=== PATIENT | female | born 1955 | race Caucasian/White ===

== ENCOUNTER 2020-08-17 07:21 | Observation (INO) ==
--- NOTE | 2020-08-16 13:37 | History & Physical Report ---
Date of Service August 16, 2020 Assessment & Plan (1) Pain of metastatic malignancy: Proceed with intrathecal medication delivery system Admission and Anticipated Discharge Date Admission Date: 08/17/2020 Anticipated date of discharge: 08/18/20 History of Present Illness Primary Care Provider: Elzbieta Riley Barbara Watts 65 female with a history of pancreatic cancer with metastases was experiencing epigastric pain. She has failed multiple treatment modalities to control pain including neurolytic celiac plexus block. She underwent intrathecal hydromorphone trial with excellent efficacy and is now located to undergo implantation intrathecal drug delivery system implantation with hydromorphone infusion. She is being admitted to the ambulatory surgery unit to undergo the procedure on 08/17/2020. Allergies Allergy/AdvReac Type Severity Reaction Status Date / Time latex Allergy rash, welts Verified 08/16/20 11:12 Penicillins Allergy Anaphylaxis Verified 08/16/20 11:12 Home Medications Medication Instructions Recorded Confirmed Type ascorbic acid (vitamin C) 1,000 mg 1 gm PO BID tab 06/23/19 08/16/20 History tablet cholecalciferol (vitamin D3) 100 4,000 units PO QPM 06/23/19 08/16/20 History mcg (4,000 unit) capsule escitalopram oxalate 10 mg tablet 10 mg PO QAM 06/23/19 08/16/20 History lanreotide 120 mg/0.5 mL 120 mg SQ .every 28 days ml 06/23/19 08/16/20 History subcutaneous syringe [id number] 2 cap PO .with meals cap 06/23/19 08/16/20 History 36,000-114,000-180,000 unit capsule,delay rel zolpidem 10 mg tablet 10 mg PO HS tab 06/23/19 08/16/20 History cyanocobalamin (vitamin B-12) 1,000 mcg IM MONTHLY 03/30/20 08/16/20 History potassium chloride 20 meq PO QAM 03/30/20 08/16/20 History warfarin 5 mg PO QPM 03/30/20 08/16/20 History Lovenox 50 mg SC BID 04/12/20 08/16/20 History pregabalin [Lyrica] 150 mg PO TID 05/31/20 08/16/20 History sennosides [senna] 17.2 mg PO HS 07/28/20 08/16/20 History Past Med/Surg History Medical History Age related osteoporosis Arthritis HIP Cancer pancreatic cancer w/ mets to liver; dx 2017; surgery + chemo/radiation (last treatment 06/2019) Cancer related pain Cervical spinal stenosis Chronic anticoagulation Depression Fibromyalgia History of DVT (deep vein thrombosis) BLLE 2013 following surgery --> PE -- on coumadin History of pulmonary embolism h/o 2013 following surgery and again in 2018 r/t cancer diagnosis -- on coumadin Vertebral compression fracture Surgical History H/O splenectomy H/O: History of cholecystectomy History of colonoscopy History of esophagogastroduodenoscopy (EGD) History of partial pancreatectomy History of tonsillectomy Family History Father Coronary heart disease Mother Alzheimer disease Other No family history of adverse response to anesthesia Social History Smoking Status: Never smoker Second Hand Exposure: Yes (hx); Hx Alcohol Use: Yes Alcohol type: wine Hx Substance Use: No Preferred Language: Dominican Communication Ability: Effective Visual Impairment: No Limitations Hearing Ability: Normal [place] [employer] Required: No Beliefs That Will Affect Care: None marital status: Engaged Current Living Situation: Significant Other current occupational status: retired Feels Safe at Home: Yes Assistive Devices: None Review of Systems Review of Systems: Unobtainable due to reduced consciousness Constitutional: no fever, no chills, no sweats, no malaise and no weight loss Eyes: no photophobia Respiratory: no cough, no dyspnea, no pain on inspiration and no pain with cough Cardiovascular: no chest pain, no dyspnea and no orthopnea Gastrointestinal: + abdominal pain (midepigastric) Musculoskeletal: as per Subjective / HPI and + back pain (Thoracic spine) Integumentary: no rash and no lesions Neurologic: as per Subjective / HPI; no gait abnormality, no localized weakness, no numbness and no paresthesia Psychiatric: no depression and no anxiety Hematologic / Lymphatic: + easy bruising (Right lower quadrant) Physical Exam Constitutional: WD/WN, vitals as above healthy appearing; no acute distress Eyes: PERRL, conjunctivae normal, anicteric sclerae ENMT: external ear and nose normal, oropharynx normal Neck: trachea midline, no thyromegaly Respiratory: normal respiratory effort, lungs clear to auscultation Cardiovascular: RRR, no murmur, no edema Vessels: normal peripheral pulses, normal carotid upstroke, brachial pulses present, radial pulses present and ulnar pulses present; no JVD and no carotid bruit Extremities: normal capillary refill; no pedal edema Gastrointestinal (Abdomen): normal bowel sounds, soft, nontender, no hepatosp lenomegaly Inspection/Auscultation: normal bowel sounds Percussion/Palpation: + abdomen tender (Epigastric) Skin: no rashes, warm and dry + ecchymosis (Right lower quadrant); no rashes and no ulcers Psychiatric: A+Ox3, euthymic affect Code Status & VTE Plan Code Status Full Code VTE Prophylaxis Plan VTE Prophylaxis will be ordered: Yes Reason for no VTE drug order: Contraindicated (Spinal injection)
--- NOTE | 2020-08-16 13:49 | Anesthesiology Consultation ---
Date of Service August 16, 2020 Assessment & Plan (1) Encounter for pre-operative examination: COVID Status: As of 07/28 nurse assessment, patient denies travel to endemic area, known exposure/sick contacts, or symptoms of COVID19. Preoperative COVID19 testing done in [place] on 08/08/20 -- results NEGATIVE. Per Dr. Haji, no repeat testing needed prior to procedure. Case was scheduled for 08/16, but unfortunately in pre-op was found to have elevated aPTT at 47.8. Decision was made to postpone procedure. "She has a history of hypercoagulable state and is on chronic anticoagulant therapy with Coumadin. She stopped her Coumadin 5 days ago and was placed on 24-hour dosing of subcu Lovenox. She stopped her Lovenox 8 AM yesterday morning anticipation of surgery today...After discussing with her nurse about potential complications, they like to defer surgery until tomorrow. She was discharged today and will be readmitted tomorrow to the short procedure unit to undergo repeat coagulation testing and proposed surgery if her coagulation status is improved." PT/INR/PTT to be checked AM DOS. Chart Review Chart Review: Acceptable Risk for Surgery (pending normalized coag AM DOS) and Patient NOT seen in Pre Admission Testing History Surgery Operation Date: 08/17/20 10:30 Proposed Procedures p Implantation of Intrathecal Morphine Drug Administration System - Anselmojaleesa Haji MD, FIPP Allergies Allergy/AdvReac Type Severity Reaction Status Date / Time latex Allergy rash, welts Verified 08/16/20 11:12 Penicillins Allergy Anaphylaxis Verified 08/16/20 11:12 Medications Home Medications Medication Instructions Recorded Confirmed Last Taken ascorbic acid (vitamin C) 1,000 mg 1 gm PO BID tab 06/23/19 08/16/20 05/30/20 18:00 tablet cholecalciferol (vitamin D3) 100 4,000 units PO QPM 06/23/19 08/16/20 08/15/20 20:00 mcg (4,000 unit) capsule escitalopram oxalate 10 mg tablet 10 mg PO QAM 06/23/19 08/16/20 08/16/20 06:00 lanreotide 120 mg/0.5 mL 120 mg SQ .every 28 days ml 06/23/19 08/16/20 08/06/20 subcutaneous syringe [id number] 2 cap PO .with meals cap 06/23/19 08/16/20 08/15/20 18:00 36,000-114,000-180,000 unit capsule,delay rel zolpidem 10 mg tablet 10 mg PO HS tab 06/23/19 08/16/20 08/15/20 20:00 cyanocobalamin (vitamin B-12) 1,000 mcg IM MONTHLY 03/30/20 08/16/20 08/06/20 potassium chloride 20 meq PO QAM 03/30/20 08/16/20 08/15/20 20:00 warfarin 5 mg PO QPM 03/30/20 08/16/20 08/10/20 Lovenox 50 mg SC BID 04/12/20 08/16/20 08/15/20 08:00 pregabalin [Lyrica] 150 mg PO TID 05/31/20 08/16/20 08/16/20 06:00 sennosides [senna] 17.2 mg PO HS 07/28/20 08/16/20 08/15/20 20:00 Past Medical History Medical History Age related osteoporosis Arthritis HIP Cancer pancreatic cancer w/ mets to liver; dx 2017; surgery + chemo/radiation (last treatment 06/2019) Cancer related pain Cervical spinal stenosis Chronic anticoagulation Depression Fibromyalgia History of DVT (deep vein thrombosis) BLLE 2013 following surgery --> PE -- on coumadin History of pulmonary embolism h/o 2013 following surgery and again in 2018 r/t cancer diagnosis -- on coumadin Vertebral compression fracture Past Family History Family History Father Coronary heart disease Mother Alzheimer disease Other No family history of adverse response to anesthesia Past Surgical History Surgical History H/O splenectomy H/O: History of cholecystectomy History of colonoscopy History of esophagogastroduodenoscopy (EGD) History of partial pancreatectomy History of tonsillectomy Social History Smoking Status: Never smoker Hx Alcohol Use: Yes Alcohol type: wine alcohol intake frequency: holidays/special occasions only Hx Substance Use: No substance use type: does not use Testing Laboratory Results 07/25/20 WBC: 4.2 H/H: 11.8/35.6 PLATELETS: 137 UA: mixed gram + bacteria 08/16/20 PT: 10.9 PTT: 47.8 INR: 1.1 Other Testing Electrocardiogram Date: 07/25/20 Findings: + NSR @ (61bpm) Chest X-Ray Date: 07/26/20 Findings: + NAD
[~2020-08-17 07:21] MED LIST: CLINDAMYCIN 600 MG/54 ML BAG IV SCH; CLINDAMYCIN 900 MG in DEXTROSE 5% 50 ML IV SCH; LACTATED RINGER'S 1,000 ML IV SCH; MUPIROCIN 2% OINT 22 GM TUBE EXT SCH
[2020-08-17 08:20] LABS: Partial Thromboplastin Ratio 1.4; Partial Thromboplastin Time 36.4 Seconds (21.0-31.0); Prothrombin Time 10.5 Seconds (9.0-12.0)
[2020-08-17] MEDS ORDERED: ONDANSETRON INJ 2 MG/ML 2 ML VIAL IV PRN (08:57)
[2020-08-17] MEDS ORDERED: ATROPINE SULFATE 0.1 MG/ML 10ML SYR IV PRN (08:57)
[2020-08-17] MEDS ORDERED: ePHEDrine sulfate 50 MG/ML AMP IV PRN (08:57)
--- NOTE | 2020-08-17 09:26 | History & Physical Bridge Note ---
Date of Service August 17, 2020 History & Physical Bridge Note Barbara Watts is a 65-year-old female who presents today to undergo implantation of intrathecal drug delivery system. She has a history of pancreatic cancer with metastatic disease with epigastric and thoracic spine pain related to her malignancy. She was scheduled to undergo the procedure yesterday, but her PTT was significantly elevated despite her stopping Lovenox for 24 hours. She was therefore postponed and rescheduled today and maintain off her anticoagulant therapy. Coagulation studies acceptable today to proceed. There has been no interim changes in her health or her complaints. Examination today is unchanged from yesterday. Rest of the laboratory studies acceptable. As yesterday, informed consent was obtained including discussing alternative therapies, risks the procedure including injury to the spinal cord, spinal or epidural hematoma, infection, bleeding and reactions to the medications. Patient and her spouse were informed as to the purpose of the procedure was to improve her quality of life by providing better pain relief as well as consequences of not undergoing this procedure. They both stated that he understood and she gave informed consent to proceed.
[2020-08-17] MEDS ORDERED: DEXAMETHASONE SOD INJ 4 MG/ML VIAL ONE (09:41)
[2020-08-17] MEDS ORDERED: NEOSTIGMINE METHYLSULFATE 5 MG/5 ML SYR ONE (09:41)
[2020-08-17] MEDS ORDERED: ONDANSETRON INJ 2 MG/ML 2 ML VIAL ONE (09:41)
[2020-08-17] MEDS ORDERED: LIDOCAINE HCL 2% 2 ML VIAL/AMP(20MG/ML) INFIL ONE (09:41)
[2020-08-17] MEDS ORDERED: GLYCOPYRROLATE 0.2 MG/ML VIAL ONE (09:41)
[2020-08-17] MEDS ORDERED: ROCURONIUM BROMIDE 10 MG/ML 5 ML VIAL IV ONE (09:41)
[2020-08-17] MEDS ORDERED: PROPOFOL IV EMULSION 10 MG/ML 20 ML VIAL IV ONE (09:41)
[2020-08-17] MEDS ORDERED: MIDAZOLAM HCL 1 MG/ML 2ML VIAL ONE (09:42)
[2020-08-17] MEDS ORDERED: HYDROmorphone INJ 2 MG/ML SYR/VIAL ONE (09:42)
[2020-08-17] MEDS ORDERED: SODIUM CHLORIDE 0.9% INJ 10 ML VIAL ONE (09:48)
[2020-08-17] MEDS ORDERED: BUPIVACAINE 0.25% 30 ML VIAL ONE (10:21)
[2020-08-17] MEDS ORDERED: EPINEPHrine INJ 1 MG/ML AMP ONE (10:22)
[2020-08-17] MEDS ORDERED: IOPAMIDOL INJ 61% 15 ML VIAL INSTIL ONE (12:11)
[2020-08-17] MEDS ORDERED: MAGNESIUM SULFATE / D5W 1 GM/100 ML BAG IV ONE (12:15)
--- NOTE | 2020-08-17 13:48 | Operative Report ---
Post Operative Report Pre & Post Diagnosis Operation Date: 08/17/20 10:30 Pre-Op Diagnosis: Pancreatic Cancer with Mets to the Liver, Chronic Mid Epigastric Pain Post-Op Diagnosis: Pancreatic Cancer with Mets to the Liver, Chronic Mid Epigastric Pain I identified the patient and participated in the time-out.: Yes Procedure Operation Date: 08/17/20 10:30 Actual Procedures Implantation of Intrathecal Morphine Drug Administration System- Anselmo Haji MD, LILIYA Surgeon Anselmo Haji MD, LILIYA Bus Greaser ALTAF Perez Estimated Blood Loss 25 Findings Consistent with Post-Op Diagnosis Specimens None Drains None Anesthesia Type General Complications none Disposition Accompanied Patient To Recovery: No Disposition: Recovery Room Description of Procedure Intrathecal pump insertion, Catheter access port study, and Postprocedure Reprogramming and Analysis PREOPERATIVE DIAGNOSIS: Epigastric pain secondary to metastatic pancreatic cancer. POSTOPERATIVE DIAGNOSIS: Same. COMPLICATIONS: None. SURGEON: Dr. Haji. DIRECTOR OF PLACEMENT: ALTAF Perez. ANESTHESIA: General/ETT. Prior to starting, the Patients diagnosis and the procedure were reviewed with the patient in detail. Possible risks and complications including infection, bleeding, damage to surrounding structures, injury to spinal cord and nerves, postural puncture headache and increased pain were discussed. Alternative therapies were also reviewed. Also, the need for routine refill of the pump on an ongoing basis until pump is explanted was discussed with the patient. Tommie doyle questions were answered and they agreed to proceed. Informed consent was obtained. Allergies and medication list was reviewed. The patient was brought to the operating room and placed in supine position. Biplanar fluoroscopy and Isovue-M 300 contrast was utilized to assist in placement of the intrathecal needle and to evaluate the catheter position. 900 mg of clindamycin was given for antibiotic prophylaxis. General anesthesia was induced uneventfully and patient was repositioned in left lateral decubitus position. On examination, no signs of skin breakdown or infection were noted at the operative sites. Entire thoracic lumbar area and left lower quadrant of the abdomen were cleansed with DuraPrep followed by Betadine. Sterile drapes were applied. Immediately prior to starting the procedure, a ``time out was conducted with the staff and the patient where the patient was identified, proposed procedure was verified, consent was reviewed and the proper site for the planned procedure was identified. Using biplanar fluoroscopic guidance, a 16-gauge spinal needle was used to gain access to the CSF through the L3/L4 at the third attempt interspace using fluoroscopy. No blood was noted. Clear and free CSF flow was obtained and the intrathecal catheter was passed through the needle to position the catheter tip at the T9 vertebral body level. The stylet was then removed. A 1-1/2 inch midline incision was made surrounding the intrathecal needle. Hemostasis was achieved. The epidural catheter was secured to the fascia with 2 purse string 0 silk ties. The spinal needle was then removed. 2 pursestring sutures using 0 silk were taken around the catheter site to secure the catheter to the supraspinous ligaments. Nintex butterfly anchor was used to secure the catheter to the underlying supraspinous ligament with 0 silk sutures. CSF flow from the intrathecal catheter was evident aspiration after anchoring of the catheter to the fascia. Then in the right quadrant a pocket for the intrathecal pump was made using scalpel, blunt dissection and electrocautery. Hemostasis was achieved using electrocautery. A passer was used to transfer the intrathecal pump catheter underneath the skin and subcutaneous tissues through to the pocket incision. After transfer of the end of the catheter to the pocket incision aspiration of the intrathecal catheter revealed free flowing CSF. Both pocket and midline axial incisions were irrigated with sterile normal saline with Betadine. The intrathecal pump was filled was rinsed and filled with hydromorphone 1mg/ml per protocol. The intrathecal catheter was trimmed to 84.8 cm. The suture-less connector was connected to the end the intrathecal pump and aspiration from of the end of the catheter demonstrated free-flowing CSF. It was then connected to the intrathecal pump. The intrathecal pump was anchored in the pocket with 4-0 Prolene sutures. The skin and subcutaneous tissues of both incisions were closed with interrupted continuous -0 Stratafix, antibiotic coated sutures and the subcuticular was closed with 3-0 running Stratafix, antibiotic coated sutures. Skin was closed with tammy. Xeroform followed by 4 x 4's and Tegaderms were placed for dressings. Abdominal binder was applied. No complications were noted throughout the procedure. The patient tolerated the procedure and general anesthesia well and was extubated at the end of the procedure. The patient was then transferred to the recovery room in stable condition. Intrathecal pump was then interrogated and programmed parameters listed below. The patient will follow up with our clinic within 7 days for a wound check and then plan to have the tammy removed at day 14. Pump size inserted: 20 ml Level of catheter: T9 Catheter trimmed to: 84.8 cm Medication placed in pump: Hydromorphone 1 mg/ml Daily dose: 0.1 mg/24 hours I attest to the content of the Intraoperative Record and any orders documented therein. Any exceptions are noted below.
[2020-08-17] MEDS: fentaNYL citrate 100 MCG/2 ML VIAL IV PRN ×2 (14:00→14:05)
[2020-08-17] MEDS ORDERED: ACETAMINOPHEN 325 MG TAB PO PRN (14:11)
--- NOTE | 2020-08-17 14:20 | Anesthesiology Progress Note ---
Date of Service August 17, 2020 Anesthesia Post Procedure Vital Signs Vital Signs: Temp Pulse Pulse Resp BP Pulse Ox 08/17/20 14:15 70 13 129/62 99 08/17/20 14:05 69 16 139/71 95 08/17/20 13:55 92 H 17 139/75 95 08/17/20 13:47 97.3 F L 79 14 138/80 96 08/17/20 08:02 97.7 F 56 L 16 145/81 H 97 Pain Intensity Abdomen: Pain Intensity: 4 Transfer of Care Handoff Completed per policy Notes Mental Status: alert / awake / arousable and participated in evaluation Patient Amnestic to Procedure: Yes Nausea / Vomiting: adequately controlled Pain: adequately controlled Airway Patency, RR, SpO2: stable & adequate BP & HR: stable & adequate Hydration State: stable & adequate Anesthetic Complications: no major complications apparent and Pt Satisfied with anesthetic care
[2020-08-17] MEDS ORDERED: NALOXONE HCL 0.4 MG/1 ML VIAL/CARP IV PRN (14:26)
[2020-08-17] MEDS ORDERED: HYDROmorphone PAIN PUMP ITR SCH (15:30)
[2020-08-17] MEDS ORDERED: CLINDAMYCIN 900 MG in DEXTROSE 5% 50 ML IV ONE (15:30)
[2020-08-17] MEDS: ONDANSETRON INJ 2 MG/ML 2 ML VIAL IV PRN (15:40)
[2020-08-17] MEDS: PANCREAZE (LIPASE 10,500U) CAP PO SCH (16:49)
[2020-08-17] MEDS: HYDROCODONE/ACETAMOPHEN 5/325MG TAB PO PRN (20:07)
[2020-08-17] MEDS: PREGABALIN 150 MG CAP PO SCH (20:08)
[2020-08-17] MEDS: ASCORBIC ACID 500 MG TAB PO SCH (20:08)
[2020-08-17] MEDS ORDERED: SENNA 8.6 MG TAB PO SCH (21:00)
[2020-08-17] MEDS ORDERED: ZOLPIDEM TARTRATE 10 MG TAB PO SCH (21:00)
[2020-08-17] MEDS ORDERED: CHOLECALCIFEROL 1,000 UNITS 25 MCG TAB PO SCH (21:00)
[2020-08-17] MEDS ORDERED: HEPARIN 100 UNIT/ML 5ML FLUSH FLUSH PRN (22:50)
[2020-08-18] MEDS: HYDROCODONE/ACETAMOPHEN 5/325MG TAB PO PRN (03:01)
[2020-08-18] MEDS: ONDANSETRON INJ 2 MG/ML 2 ML VIAL IV PRN (08:26)
--- NOTE | 2020-08-18 08:58 | Anesthesiology Progress Note ---
Date of Service August 18, 2020 Anesthesia Post Procedure Vital Signs Vital Signs: Temp Pulse Pulse Pulse Pulse Resp BP 08/18/20 08:55 36.6 C 58 L 17 124/73 08/18/20 03:59 36.6 C 66 18 97/60 L 08/18/20 03:03 36.4 C L 70 18 107/60 08/18/20 00:17 37.0 C 61 18 105/62 08/18/20 00:10 61 08/17/20 19:34 36.9 C 61 18 109/64 08/17/20 18:15 36.5 C 69 130/67 08/17/20 17:15 95 H 125/74 08/17/20 16:45 36.6 C 75 136/81 08/17/20 16:15 66 137/72 08/17/20 16:00 60 137/72 08/17/20 15:49 58 L 08/17/20 15:45 63 14 121/57 L 08/17/20 15:30 68 129/78 08/17/20 15:15 36.4 C L 68 16 152/75 H 08/17/20 14:25 36.3 C L 70 14 122/66 08/17/20 14:15 70 13 129/62 08/17/20 14:05 69 16 139/71 08/17/20 13:55 92 H 17 139/75 08/17/20 13:47 36.3 C L 79 14 138/80 Pulse Ox 08/18/20 08:55 94 08/18/20 03:59 93 08/18/20 03:03 93 08/18/20 00:17 95 08/18/20 00:10 08/17/20 19:34 94 08/17/20 18:15 95 08/17/20 17:15 08/17/20 16:45 97 08/17/20 16:15 08/17/20 16:00 08/17/20 15:49 08/17/20 15:45 99 08/17/20 15:30 08/17/20 15:15 98 08/17/20 14:25 98 08/17/20 14:15 99 08/17/20 14:05 95 08/17/20 13:55 95 08/17/20 13:47 96 Pain Intensity Abdomen: Pain Intensity: 5 Notes Mental Status: alert / awake / arousable and participated in evaluation Patient Amnestic to Procedure: Yes Nausea / Vomiting: adequately controlled Pain: adequately controlled Airway Patency, RR, SpO2: stable & adequate BP & HR: stable & adequate Hydration State: stable & adequate Anesthetic Complications: no major complications apparent
[2020-08-18] MEDS ORDERED: ESCITALOPRAM OXALATE 10 MG TAB PO SCH (09:00)
[2020-08-18] MEDS ORDERED: POTASSIUM CHLORIDE CRTAB 20 MEQ TABCR PO SCH (09:00)
--- NOTE | 2020-08-18 09:04 | Pain Management Progress Note ---
Date of Service August 18, 2020 Assessment & Plan (1) Pain of metastatic malignancy: (2) Pancreatic cancer metastasized to liver: (3) Cancer related pain: (4) Chronic anticoagulation: (5) S/P insertion of intrathecal pump: * Intrathecal pump dose was increased by 10%. Patient's current dose of hydromorphone will be 0.109 mg/day. Refer to pump print out in EMR for details. Patient provided with copy of her pump printout. A copy will also be forwarded to her physician in [place] who will be caring for her intrathecal pump moving forward * Patient will be discharged to home at this time with clindamycin 300 mg 3 times daily x10 days. Prescription sent electronically to pharmacy in [place]. * Prescription was also provided for Narcan with instructions on utilization and patient verbalized understanding--prescription sent electronically to pharmacy in [place] * Patient may also utilize hydrocodone 5/325 mg 1 tablet p.o. every 6 hours as needed for breakthrough pain-prescription was sent electronically to pharmacy in [place]. * Wound care was instructed and verbalized by the patient and all questions were answered Present on Admission?: No Admission and Anticipated Discharge Date Admission Date: August 17, 2020 Subjective Mrs. Watts underwent implantation of intrathecal pump and catheter delivery system yesterday for treatment of her chronic intractable pain associated with metastatic pancreatic cancer. The patient was initiated on hydromorphone 0.99 mg simple continuous rate intrathecally. Patient indicates minimal incisional pain. She reports some discomfort in the right sided abdomen which is her typical location and characteristic of her chronic pain associated with her alvarez creatic cancer. She is utilize hydrocodone on 2 occasions since yesterday afternoon. She reports minimal nausea. She denies any positional headaches. She does feel that her pain is overall improved with initiation of the intrathecal pump compared to prior. She rates her current pain at a 3-4/10 at best and a 6-7/10 at its worst. Patient reported no further constitutional complaints. Physical Exam Physical Exam: General: Patient was sitting up eating breakfast upon entering the room. Patient appears to be in no acute distress. Speech and thought process appropriate. Mood and affect appropriate. Cognition intact. Abdomen: Abdominal binder was in place and was removed for visual inspection. Dressing was removed from right lower quadrant wound over the intrathecal pump. The wound is approximated and without evidence of edema, erythema or skin breakdown. Minimal tenderness to palpation. There is no apparent fluid present. Prineo remain intact. Dry dressing was placed with paper tape. Back/Spine: Midline incision in the upper lumbar region was visualized after dressing removed. Prineo remains intact. No incisional associated pain. No evidence edema, erythema or skin breakdown. Nontender to palpation. Neurologic: Patient able to transfer in and out of the bed without assistance in no obvious discomfort.
[2020-08-18] MEDS: PANCREAZE (LIPASE 10,500U) CAP PO SCH ×2 (09:07→11:46)
[2020-08-18] MEDS: ASCORBIC ACID 500 MG TAB PO SCH (09:07)
[2020-08-18] MEDS: PREGABALIN 150 MG CAP PO SCH (09:07)
--- NOTE | 2020-08-18 09:15 | Discharge Summary ---
Date of Service August 18, 2020 Admission HPI Per Admitting Provider Barbara Gillzgerald 65 female with a history of pancreatic cancer with metastases was experiencing epigastric pain. She has failed multiple treatment modalities to control pain including neurolytic celiac plexus block. She underwent intrathecal hydromorphone trial with excellent efficacy and is now located to undergo implantation intrathecal drug delivery system implantation with hydromorphone infusion. She is being admitted to the ambulatory surgery unit to undergo the procedure on 08/17/2020. Patient underwent successful implantation of intrathecal pump on 08/17/2020. Hydromorphone was initiated intrathecally at 0.99 mg/day in a simple continuous rate. Patient is experiencing improved pain control. Her intrathecal dose was increased by 10% to hydromorphone 0.109 mg/day. The patient is reporting improv ed pain control and minimal incisional associated pain. Patient's overnight hospital observation has been uneventful. Patient will be discharged to home later today. Discharge Data Procedures Performed Operation Date: 08/17/20 10:30 Actual Procedures p Implantation of Intrathecal Morphine Drug Administration System(Right) - Anselmo Haji MD, [facility] Hospital Course (1) Pain of metastatic malignancy: (2) Pancreatic cancer metastasized to liver: (3) Cancer related pain: (4) Chronic anticoagulation: (5) S/P insertion of intrathecal pump: * Intrathecal pump dose was increased by 10%. Patient's current dose of hydromorphone will be 0.109 mg/day. Refer to pump print out in EMR for details. Patient provided with copy of her pump printout. A copy will also be forwarded to her physician in [place] who will be caring for her intrathecal pump moving forward * Patient will be discharged to home at this time with clindamycin 300 mg 3 times daily x10 days. Prescription sent electronically to pharmacy in [place]. * Prescription was also provided for Narcan with instructions on utilization and patient verbalized understanding--prescription sent electronically to pharmacy in [place] * Patient may also utilize hydrocodone 5/325 mg 1 tablet p.o. every 6 hours as needed for breakthrough pain-prescription was sent electronically to pharmacy in [place]. * Wound care was instructed and verbalized by the patient and all questions were answered * Patient will resume her anticoagulation therapy per protocol from [place] [facility] Discharge Instructions * Patient will be discharged home with self-care. Daily dressing changes were instructed. Patient will utilize abdominal binder 24 hours/day. We discussed activity restrictions at length and she verbalized understanding. * Patient will follow up with pain physician in [place] in 1 week and in 2 weeks as they would be providing ongoing care for her intrathecal pump * Patient will utilize antibiotics as prescribed above for 10 days * Narcan was made available as well as hydrocodone for as needed breakthrough pain
[2020-08-18] MEDS ORDERED: NON-FORMULARY MEDICATION (Naloxone [Narcan] 4 mg/actuation spray,non-aerosol) INTNAS PRN (10:25)
[2020-08-18] MEDS ORDERED: HYDROCODONE/ACETAMOPHEN 5/325MG TAB PO PRN (10:25)
[2020-08-18] MEDS ORDERED: LANREOTIDE 120 MG/0.5 ML SQ SCH (10:30)
[2020-08-18] MEDS ORDERED: CLINDAMYCIN HCL 150 MG CAP PO SCH (12:00)
[2020-09-08] MEDS ORDERED: CYANOCOBALAMIN 1000 MCG/ML VIAL IM SCH (09:00)
== END 2020-08-18 12:27 | disposition home or self-care (01) ==
LOC: 2S 07:21 → ASU 07:21